=== PATIENT | female | born 1990 | race Caucasian/White ===

== ENCOUNTER 2022-09-28 19:42 | Inpatient (IN) ==
[2022-09-28] MEDS ORDERED: LIDOCAINE 1% LOCAL 20 ML VIAL INFIL PRN (20:59)
[2022-09-28] MEDS ORDERED: OXYTOCIN 30 UNITS/500 ML BAG IV PRN (20:59)
[2022-09-28] MEDS ORDERED: BUTORPHANOL TARTRATE 1 MG/ML VIAL IV PRN (21:17)
--- NOTE | 2022-09-28 21:27 | History & Physical Report ---
Date of Service September 28, 2022 Assessment & Plan (1) Amniotic fluid leaking: (2) Uterine contractions at greater than 20 weeks of gestation: (3) Spontaneous rupture of amniotic membranes: Plan: 32 yo at 40.2 wks with contractions, SROM, early labor VSS Afebrile No medical problems GBS neg FHR categ I Plan to admit, monitor, labs, ambulate, augment with Oxytocin as needed All questions were answered. Admission and Anticipated Discharge Date Admission Date: September 28, 2022 History of Present Illness Primary Care Provider: NO PCP Patient is a 32 yo at 40.2 wks who has been feeling contractions since 1 pm today, they got more painful and regular after 6 pm. She felt a gush of fluid leaking when she was entering to here, L&D doors at 19:45 . It is clear. No VB. +FM Her has been uncomplicated except Class II obesity Denies medical problems. EFW was 7 lb 2 oz at 37 weeks GBS negative Allergies Allergy/AdvReac Type Severity Reaction Status Date / Time amoxicillin Allergy Hives Verified 09/28/22 20:05 Home Medications Medication Instructions Recorded Confirmed Type prenat.vits,katie,qvo-opew-merhf 1 tab PO DAILY 09/28/22 09/28/22 History Patient History Surgical History H/O wisdom tooth extraction Family History Grandmother (Maternal) Diabetes Father Heart disease Grandmother (Maternal) Heart disease Social History Smoking Status: Never smoker Hx Alcohol Use: No Hx Substance Use: No Preferred Language: Slovenian Communication Ability: Effective 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 Beliefs That Will Affect Care: None marital status: Single Current Living Situation: Significant Other Current Living Situation Comment: Geovany, 3 year old girl (Geovany's daughter) Other Information That Helps Us Care for You: No Feels Safe at Home: Yes Safety Concerns: Feels Safe At This Time 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 Denies h/o any STD's, no Genital HSV/ Chlamydia/ GC Review of Systems as per Subjective / HPI Physical Exam Constitutional: WD/WN, vitals as above well developed, well nourished, + acute distress (WITH CONTRACTIONS only) and + obese Gastrointestinal (Abdomen): normal bowel sounds, soft, nontender, no hepatosplenomegaly (gravid, Hermilo 8 lb) Genitourinary: normal external appearance OB Exam Abdomen: + vertex Manual OB Exam: + cervical dilation 2 cm, + cervical effacement 70% and + station -2 OB Exam Monitor Tracing: + external uterine monitor used and + category I Bed side US: vertex, placenta fundal, EFW, although not accurate due to head being engaged, 3570 gr Amnisure positive Results & Data Vital Signs (Past 12 Hours) Vital Signs Temp Pulse Resp BP 09/28/22 20:08 18 09/28/22 20:04 36.9 C 110 H 125/82
[2022-09-28 21:35] LABS: Hematocrit (blood only) 34.3 % (37.0-47.0); Hemoglobin 12.2 g/dl (12.0-16.0); Mean Corpuscular Hemoglobin 31.7 pg (25.0-34.0); Mean Corpuscular Hgb Conc 35.6 g/dL (32.0-36.0); Mean Corpuscular Volume 89.1 fL (80.0-100.0); Mean Platelet Volume 11.3 fL (9.4-12.4); Platelet Count 166 K/uL (130-400); RDW Coefficient of Variation 13.2 % (11.5-14.5); RDW Standard Deviation 42.8 fL (36.4-46.3); Red Blood Count 3.85 M/uL (4.20-5.40); White Blood Count 10.53 K/ul (4.8-10.8)
[2022-09-28 21:46] LABS: Albumin Globulin Ratio 1.1 (0.9-2); Albumin Level 3.4 gm/dl (3.4-5.0); BUN Creatinine Ratio 11.7 (10-20); Bilirubin,Total 0.4 mg/dl (0.2-1.0); Calcium 8.8 mg/dl (8.6-10.3); Creatinine Clr Calc Pharmacy 174.9 ml/min; Est GFR (African American) 141.8 ml/min; Est GFR (Non-African American) 122.3 ml/min; Globulin 3.1 gm/dl (2.5-4.0); Potassium 3.8 mmol/L (3.5-5.1); Total Protein 6.5 gm/dl (6.0-8.3)
[2022-09-28] MEDS: LACTATED RINGER'S 1,000 ML IV PRN (22:44)
[2022-09-28] MEDS ORDERED: SODIUM CHLORIDE 0.9% PF INJ 10 ML VIAL ONE (22:49)
[2022-09-28] MEDS ORDERED: fentaNYL citrate PF 100 MCG/2 ML VIAL ONE (22:49)
[2022-09-28] MEDS ORDERED: LIDOCAINE 2%/EPINEPHRINE 1:200,000 20 ML PF ONE (22:49)
[2022-09-28] MEDS ORDERED: ePHEDrine sulfate 50 MG/ML AMP ONE (22:49)
[2022-09-28] MEDS ORDERED: BUPIVACAINE 0.25% PF 30 ML VIAL ONE (22:49)
[2022-09-28] MEDS ORDERED: fentaNYL 2MCG/ML ROPIVACAINE 1.25MG/ML 100 ML BAG EPI ONE (22:50)
[2022-09-28] MEDS ORDERED: ONDANSETRON INJ 2 MG/ML 2 ML VIAL IV PRN (23:49)
[2022-09-28] MEDS ORDERED: diphenhydrAMINE 50 MG/ML VIAL IV PRN (23:49)
[2022-09-28] MEDS ORDERED: NALOXONE HCL 1 MG in SODIUM CHLORIDE 0.9% 1000ML 1,000 ML IV PRN (23:49)
[2022-09-28] MEDS ORDERED: NALOXONE HCL 0.4 MG/1 ML VIAL/CARP IV PRN (23:49)
[2022-09-28] MEDS ORDERED: ePHEDrine sulfate 50 MG/ML AMP IV PRN (23:49)
[2022-09-28] MEDS ORDERED: NALBUPHINE HCL INJ 10 MG/ML AMP IV PRN (23:49)
--- NOTE | 2022-09-28 23:49 | Anesthesiology Consultation ---
Date of Service September 28, 2022 Assessment & Plan Chart Review Chart Review: Patient NOT seen in Pre Admission Testing and Acceptable Risk for Labor Epidural Consults Requested none ASA ASA2 Proposed Anesthesia Anesthesia Type: Labor Epidural Risk / Benefits Reviewed With: PT / POA / Parent / Guardian, Accepts Plan and Informed Consent Obtained History Height/Weight Height: 5 ft 5 in Weight: 116.573 kg Allergies Allergy/AdvReac Type Severity Reaction Status Date / Time amoxicillin Allergy Hives Verified 09/28/22 20:05 Medications Home Medications Medication Instructions Recorded Confirmed Last Taken prenat.vits,katie,jgm-okcu-sfyzt 1 tab PO DAILY 09/28/22 09/28/22 09/28/22 Active Medications Generic Name Dose Route Start Last Admin Trade Name Freq PRN Reason Stop Dose Admin Lactated Ringer's 1,000 mls @ 150 mls/hr 09/28/22 20:59 09/28/22 23:34 Lr IV 09/30/22 20:58 150 mls/hr .[id number] PRN Infusion L&D Protocol Protocol Exercise / Class Metabolic Activity II 4-5 Yardwork/Stairs/Walk up hill Past Family History Family History Grandmother (Maternal) Diabetes Father Heart disease Grandmother (Maternal) Heart disease Past Surgical History Surgical History H/O wisdom tooth extraction Past Anesthesia History No Hx of Anesthesia Complications and No Family Hx of Anesthesia Complications History of PONV No Hx of PONV and No Hx of Motion Sickness Social History Smoking Status: Never smoker Hx Alcohol Use: No Hx Substance Use: No substance use type: does not use Physical Exam Vital Signs Last Vital Signs Temp 36.5 C 09/28/22 22:41 Pulse 97 H 09/28/22 23:48 Resp 20 09/28/22 22:41 BP 118/62 09/28/22 23:48 Pulse Ox 99 09/28/22 23:46 ENMT Mouth: no dentition abnormality Thyromental Distance: > or= 3.5 Finger Breadths Mallampati Class: II Neck normal visual inspection Respiratory normal respiratory effort Auscultation: lungs clear to auscultation bilaterally Cardiovascular Rate/Rhythm: regular rate and regular rhythm Psychiatric Orientation: alert Testing Laboratory Results 09/28/22 21:17 09/28/22 21:17 Blood Type O Positive 09/28/22 21:17 Antibody Screen NEGATIVE 09/28/22 21:17
[2022-09-29] MEDS ORDERED: BUPIVACAINE 0.25% PF 30 ML VIAL ONE (00:10)
--- NOTE | 2022-09-29 00:18 | Obstetrical Progress Note ---
Date of Service September 29, 2022 Assessment & Plan Admission and Anticipated Discharge Date Admission Date: September 28, 2022 Subjective Patient has received epidural about 1/2 hour ago and still painful VSS Afebrile FHR categ I Cxs q 2 min VE; 3/ 70%/ -2, tight bulging bag Will consult anesthesia for further pain management Continue to monitor closely. Results & Data Vital Signs (Past 12 Hours) Vital Signs Temp Pulse Resp BP Pulse Ox 09/28/22 20:08 18 09/29/22 00:16 89 100 09/29/22 00:11 83 133/80 100 09/29/22 00:06 100 09/29/22 00:06 84 09/29/22 00:06 81 119/69 09/29/22 00:02 83 108/59 L 09/29/22 00:01 82 100 09/28/22 23:56 90 20 108/61 100 09/28/22 23:51 20 09/28/22 23:51 99 H 20 110/59 L 100 09/28/22 23:48 97 H 20 118/62 09/28/22 23:46 102 H 99 09/28/22 23:45 96 H 119/66 09/28/22 23:41 90 98 09/28/22 23:42 96 H 120/67 09/28/22 23:39 81 132/79 09/28/22 23:36 81 96 09/28/22 23:31 89 100 09/28/22 23:26 83 98 09/28/22 23:21 87 97 09/28/22 23:16 85 99 09/28/22 23:11 81 99 09/28/22 23:06 86 99 09/28/22 23:01 83 99 09/28/22 22:56 86 98 09/28/22 22:41 36.5 C 93 H 20 144/79 H 09/28/22 21:33 18 09/28/22 21:33 37.0 C 18 09/28/22 20:04 36.9 C 110 H 125/82
[2022-09-29] MEDS: LACTATED RINGER'S 1,000 ML IV PRN ×2 (00:58→07:03)
[2022-09-29] MEDS ORDERED: OXYTOCIN 30 UNITS/500 ML BAG IV PRN ×2 (01:16→13:19)
[2022-09-29] MEDS: fentaNYL 2MCG/ML ROPIVACAINE 1.25MG/ML 100 ML BAG EPI PRN ×2 (04:12→08:46)
--- NOTE | 2022-09-29 06:53 | Obstetrical Progress Note ---
Date of Service September 29, 2022 Assessment & Plan Admission and Anticipated Discharge Date Admission Date: September 28, 2022 Subjective Patient has been comfortable after epidural bolus VSS Afebrile FHR categ I [place]: ctxs q 2-3 min VE; 6/ 90%/-2, large bulging bag, AROM'ed, abundant clear fluid Continue to monitor closely Results & Data Vital Signs (Past 12 Hours) Vital Signs Temp Pulse Resp BP Pulse Ox 09/28/22 20:08 18 09/29/22 06:46 76 99 09/29/22 06:43 78 130/62 09/29/22 06:41 79 96 09/29/22 06:36 81 97 09/29/22 06:31 88 98 09/29/22 06:28 82 142/80 H 09/29/22 06:26 98 H 98 09/29/22 06:21 91 H 97 09/29/22 06:16 84 98 09/29/22 06:12 88 121/71 09/29/22 06:11 82 97 09/29/22 06:06 91 H 97 09/29/22 06:01 80 97 09/29/22 05:57 87 128/76 09/29/22 05:56 75 97 09/29/22 05:51 79 97 09/29/22 05:46 82 98 09/29/22 05:41 78 98 09/29/22 05:42 79 127/72 09/29/22 05:36 79 99 09/29/22 05:31 79 98 09/29/22 05:29 73 121/66 09/29/22 05:26 80 98 09/29/22 05:21 81 96 09/29/22 05:16 82 97 09/29/22 05:13 88 130/73 09/29/22 05:11 78 96 09/29/22 05:06 80 96 09/29/22 05:01 83 96 09/29/22 04:58 76 125/76 09/29/22 04:56 83 97 09/29/22 04:51 75 97 09/29/22 04:46 78 96 09/29/22 04:43 75 127/67 09/29/22 04:41 75 97 09/29/22 04:36 75 97 09/29/22 04:31 83 94 09/29/22 04:32 83 94 09/29/22 04:27 74 123/63 09/29/22 04:26 76 95 09/29/22 04:21 80 95 09/29/22 04:16 78 96 09/29/22 04:14 16 09/29/22 04:14 36.7 C 16 09/29/22 04:13 76 120/63 09/29/22 04:11 77 96 09/29/22 04:06 90 98 09/29/22 04:01 79 96 09/29/22 03:58 83 127/68 09/29/22 03:56 91 H 97 09/29/22 03:53 77 94 09/29/22 03:51 74 96 09/29/22 03:46 73 96 09/29/22 03:43 68 112/55 L 09/29/22 03:41 80 96 09/29/22 03:36 78 96 09/29/22 03:31 75 96 09/29/22 03:27 70 114/56 L 09/29/22 03:26 73 96 09/29/22 03:21 79 96 09/29/22 03:16 74 96 09/29/22 03:12 76 115/66 09/29/22 03:11 86 97 09/29/22 03:06 75 97 09/29/22 03:01 77 96 09/29/22 02:58 81 110/65 09/29/22 02:56 75 96 09/29/22 02:51 94 H 97 09/29/22 02:46 101 H 98 09/29/22 02:43 83 133/74 09/29/22 02:41 79 98 09/29/22 02:36 93 H 98 09/29/22 02:34 36.7 C 87 18 94 09/29/22 02:31 90 96 09/29/22 02:28 87 112/55 L 09/29/22 02:26 89 97 09/29/22 02:21 89 95 09/29/22 02:16 82 96 09/29/22 02:14 83 98/54 L 09/29/22 02:11 82 96 09/29/22 02:06 91 H 96 09/29/22 02:01 85 98 09/29/22 01:57 77 18 109/56 L 09/29/22 01:56 84 95 09/29/22 01:51 84 96 09/29/22 01:46 81 97 09/29/22 01:43 79 104/59 L 09/29/22 01:41 89 96 09/29/22 01:36 82 96 09/29/22 01:31 86 97 09/29/22 01:28 86 110/69 09/29/22 01:26 97 H 97 09/29/22 01:21 79 96 09/29/22 01:16 88 96 09/29/22 01:14 82 109/55 L 09/29/22 01:11 97 H 97 09/29/22 01:06 99 H 98 09/29/22 01:01 83 98 09/29/22 00:57 83 115/61 09/29/22 00:56 105 H 99 09/29/22 00:53 99 H 113/56 L 09/29/22 00:51 98 H 99 09/29/22 00:46 96 09/29/22 00:46 99 H 09/29/22 00:46 90 108/57 L 09/29/22 00:41 81 103/59 L 98 09/29/22 00:36 99 09/29/22 00:36 83 09/29/22 00:36 82 111/55 L 09/29/22 00:31 89 100 09/29/22 00:32 83 112/59 L 09/29/22 00:29 36.6 C 09/29/22 00:26 83 128/73 99 09/29/22 00:22 90 117/60 09/29/22 00:21 88 100 09/29/22 00:18 88 140/80 09/29/22 00:16 89 100 09/29/22 00:11 83 133/80 100 09/29/22 00:06 100 09/29/22 00:06 84 09/29/22 00:06 81 119/69 09/29/22 00:02 83 108/59 L 09/29/22 00:01 82 100 09/28/22 23:56 90 20 108/61 100 09/28/22 23:51 20 09/28/22 23:51 99 H 20 110/59 L 100 09/28/22 23:48 97 H 20 118/62 09/28/22 23:46 102 H 99 09/28/22 23:45 96 H 119/66 09/28/22 23:41 90 98 09/28/22 23:42 96 H 120/67 09/28/22 23:39 81 132/79 09/28/22 23:36 81 96 09/28/22 23:31 89 100 09/28/22 23:26 83 98 09/28/22 23:21 87 97 09/28/22 23:16 85 99 09/28/22 23:11 81 99 09/28/22 23:06 86 99 09/28/22 23:01 83 99 09/28/22 22:56 86 98 09/28/22 22:41 36.5 C 93 H 20 144/79 H 09/28/22 21:33 18 09/28/22 21:33 37.0 C 18 09/28/22 20:04 36.9 C 110 H 125/82
--- NOTE | 2022-09-29 07:54 | Obstetrical Progress Note ---
Date of Service September 29, 2022 Assessment & Plan Admission and Anticipated Discharge Date Admission Date: September 28, 2022 Subjective Patient felt pressure and uncomfortable VE; 8-9/ 90%/ 0, head much lower FHR categ I, mild early decels with contractions Continue to monitor closely Results & Data Vital Signs (Past 12 Hours) Vital Signs Temp Pulse Resp BP Pulse Ox 09/29/22 07:10 36.8 C 18 09/29/22 07:10 18 09/28/22 20:08 18 09/29/22 07:51 81 99 09/29/22 07:46 92 H 99 09/29/22 07:44 107 H 151/69 H 09/29/22 07:41 89 99 09/29/22 07:36 94 H 99 09/29/22 07:31 84 99 09/29/22 07:27 80 135/77 09/29/22 07:26 91 H 98 09/29/22 07:21 93 H 99 09/29/22 07:16 90 100 09/29/22 07:14 86 156/82 H 09/29/22 07:11 80 99 09/29/22 07:06 82 99 09/29/22 07:01 80 99 09/29/22 06:59 83 142/92 H 09/29/22 06:56 75 98 09/29/22 06:51 82 99 09/29/22 06:46 76 99 09/29/22 06:43 78 130/62 09/29/22 06:41 79 96 09/29/22 06:36 81 97 09/29/22 06:31 88 98 09/29/22 06:28 82 142/80 H 09/29/22 06:26 98 H 98 09/29/22 06:21 91 H 97 09/29/22 06:16 84 98 09/29/22 06:12 88 121/71 09/29/22 06:11 82 97 09/29/22 06:06 91 H 97 09/29/22 06:01 80 97 09/29/22 05:57 87 128/76 09/29/22 05:56 75 97 09/29/22 05:51 79 97 09/29/22 05:46 82 98 09/29/22 05:41 78 98 09/29/22 05:42 79 127/72 09/29/22 05:36 79 99 09/29/22 05:31 79 98 09/29/22 05:29 73 121/66 09/29/22 05:26 80 98 09/29/22 05:21 81 96 09/29/22 05:16 82 97 09/29/22 05:13 88 130/73 09/29/22 05:11 78 96 09/29/22 05:06 80 96 09/29/22 05:01 83 96 09/29/22 04:58 76 125/76 09/29/22 04:56 83 97 09/29/22 04:51 75 97 09/29/22 04:46 78 96 09/29/22 04:43 75 127/67 09/29/22 04:41 75 97 09/29/22 04:36 75 97 09/29/22 04:31 83 94 09/29/22 04:32 83 94 09/29/22 04:27 74 123/63 09/29/22 04:26 76 95 09/29/22 04:21 80 95 09/29/22 04:16 78 96 09/29/22 04:14 16 09/29/22 04:14 36.7 C 16 09/29/22 04:13 76 120/63 09/29/22 04:11 77 96 09/29/22 04:06 90 98 09/29/22 04:01 79 96 09/29/22 03:58 83 127/68 09/29/22 03:56 91 H 97 09/29/22 03:53 77 94 09/29/22 03:51 74 96 09/29/22 03:46 73 96 09/29/22 03:43 68 112/55 L 09/29/22 03:41 80 96 09/29/22 03:36 78 96 09/29/22 03:31 75 96 09/29/22 03:27 70 114/56 L 09/29/22 03:26 73 96 09/29/22 03:21 79 96 09/29/22 03:16 74 96 09/29/22 03:12 76 115/66 09/29/22 03:11 86 97 09/29/22 03:06 75 97 09/29/22 03:01 77 96 09/29/22 02:58 81 110/65 09/29/22 02:56 75 96 0413/23 02:51 94 H 97 09/29/22 02:46 101 H 98 09/29/22 02:43 83 133/74 09/29/22 02:41 79 98 09/29/22 02:36 93 H 98 09/29/22 02:34 36.7 C 87 18 94 09/29/22 02:31 90 96 09/29/22 02:28 87 112/55 L 09/29/22 02:26 89 97 09/29/22 02:21 89 95 09/29/22 02:16 82 96 09/29/22 02:14 83 98/54 L 09/29/22 02:11 82 96 09/29/22 02:06 91 H 96 09/29/22 02:01 85 98 09/29/22 01:57 77 18 109/56 L 09/29/22 01:56 84 95 09/29/22 01:51 84 96 09/29/22 01:46 81 97 09/29/22 01:43 79 104/59 L 09/29/22 01:41 89 96 09/29/22 01:36 82 96 09/29/22 01:31 86 97 09/29/22 01:28 86 110/69 09/29/22 01:26 97 H 97 09/29/22 01:21 79 96 09/29/22 01:16 88 96 09/29/22 01:14 82 109/55 L 09/29/22 01:11 97 H 97 09/29/22 01:06 99 H 98 09/29/22 01:01 83 98 09/29/22 00:57 83 115/61 09/29/22 00:56 105 H 99 09/29/22 00:53 99 H 113/56 L 09/29/22 00:51 98 H 99 09/29/22 00:46 96 09/29/22 00:46 99 H 09/29/22 00:46 90 108/57 L 09/29/22 00:41 81 103/59 L 98 09/29/22 00:36 99 09/29/22 00:36 83 09/29/22 00:36 82 111/55 L 09/29/22 00:31 89 100 09/29/22 00:32 83 112/59 L 09/29/22 00:29 36.6 C 09/29/22 00:26 83 128/73 99 09/29/22 00:22 90 117/60 09/29/22 00:21 88 100 09/29/22 00:18 88 140/80 09/29/22 00:16 89 100 09/29/22 00:11 83 133/80 100 09/29/22 00:06 100 09/29/22 00:06 84 09/29/22 00:06 81 119/69 09/29/22 00:02 83 108/59 L 09/29/22 00:01 82 100 09/28/22 23:56 90 20 108/61 100 09/28/22 23:51 20 09/28/22 23:51 99 H 20 110/59 L 100 09/28/22 23:48 97 H 20 118/62 09/28/22 23:46 102 H 99 09/28/22 23:45 96 H 119/66 09/28/22 23:41 90 98 09/28/22 23:42 96 H 120/67 09/28/22 23:39 81 132/79 09/28/22 23:36 81 96 09/28/22 23:31 89 100 09/28/22 23:26 83 98 09/28/22 23:21 87 97 09/28/22 23:16 85 99 09/28/22 23:11 81 99 09/28/22 23:06 86 99 09/28/22 23:01 83 99 09/28/22 22:56 86 98 09/28/22 22:41 36.5 C 93 H 20 144/79 H 09/28/22 21:33 18 09/28/22 21:33 37.0 C 18 09/28/22 20:04 36.9 C 110 H 125/82
[2022-09-29] MEDS ORDERED: Nursing to Pharmacy Communication SCH (09:00)
--- NOTE | 2022-09-29 09:10 | Anesthesia Procedure Note ---
Date of Service September 29, 2022 Anesthesia Epidural Re-Dose Vital Signs Temp Pulse Resp BP Pulse Ox 36.8 C 93 H 20 164/78 H 99 09/29/22 07:10 09/29/22 09:11 09/29/22 09:01 09/29/22 08:59 09/29/22 09:11 Notes Pain Intensity: 9 Dilatation (cm): 10.0 Effacement (%): 100 Heart Rate: 130 Called by nursing to evaluate epidural as the patient is having increased pain. The epidural was re-dosed with the following medications (all medications via epidural route) after negative aspiration of the epidural catheter for CSF/HEME 1.2% lidocaine and 0.2% ropivacaine 6m then 2mll After Epidural Re-Dose Mental Status: alert / awake / arousable and participated in evaluation Pain: improving with treatment Airway Patency, RR, SpO2: stable & adequate BP & HR: stable & adequate
--- NOTE | 2022-09-29 10:41 | Obstetrical Progress Note ---
Date of Service September 29, 2022 Assessment & Plan Admission and Anticipated Discharge Date Admission Date: September 28, 2022 Subjective Patient was found to be fully dilated earlier and wanted to push. She was very painful with pushes which were not effective. Epidural bolus was given by anesthesia and now comfortable Plan to labor down and continue to monitor closely. Results & Data Vital Signs (Past 12 Hours) Vital Signs Temp Pulse Resp BP Pulse Ox 09/29/22 07:10 36.8 C 18 09/29/22 07:10 18 09/29/22 10:36 90 100 09/29/22 10:34 92 H 83 L 09/29/22 10:31 83 99 09/29/22 10:27 93 H 116/66 09/29/22 10:26 98 H 98 09/29/22 10:24 95 H 90 09/29/22 10:21 93 H 99 09/29/22 10:16 103 H 95 09/29/22 10:14 88 110/62 09/29/22 10:11 89 83 L 09/29/22 10:06 91 H 99 09/29/22 10:01 96 H 99 09/29/22 09:59 94 H 123/59 L 09/29/22 09:56 88 99 09/29/22 09:53 96 H 88 L 09/29/22 09:51 89 100 09/29/22 09:46 89 99 09/29/22 09:44 88 133/62 09/29/22 09:41 86 100 09/29/22 09:36 85 99 09/29/22 09:31 85 99 09/29/22 09:30 20 09/29/22 09:30 36.8 C 20 09/29/22 09:28 83 122/59 L 09/29/22 09:26 90 99 09/29/22 09:21 99 H 96 09/29/22 09:16 89 99 09/29/22 09:13 88 144/63 H 09/29/22 09:11 93 H 99 09/29/22 09:06 88 98 09/29/22 09:01 91 H 20 97 09/29/22 08:59 91 H 164/78 H 09/29/22 08:56 92 H 98 09/29/22 08:51 92 H 98 09/29/22 08:46 97 H 98 09/29/22 08:42 81 144/63 H 09/29/22 08:41 128 H 96 09/29/22 08:38 82 143/64 H 09/29/22 08:36 94 H 98 09/29/22 08:31 85 20 99 09/29/22 08:30 105 H 85 L 09/29/22 08:26 85 100 09/29/22 08:21 100 09/29/22 08:21 119 H 09/29/22 08:21 100 H 89 L 09/29/22 08:16 93 H 99 09/29/22 08:13 75 147/76 H 09/29/22 08:11 80 99 09/29/22 08:06 77 100 09/29/22 08:01 96 H 99 09/29/22 08:00 86 146/90 H 09/29/22 07:56 93 H 100 09/29/22 07:51 81 99 09/29/22 07:46 92 H 99 09/29/22 07:44 107 H 151/69 H 09/29/22 07:41 89 99 09/29/22 07:36 94 H 99 09/29/22 07:31 84 99 09/29/22 07:27 80 135/77 09/29/22 07:26 91 H 98 09/29/22 07:21 93 H 99 09/29/22 07:16 90 100 09/29/22 07:14 86 156/82 H 09/29/22 07:11 80 99 09/29/22 07:06 82 99 09/29/22 07:01 80 99 09/29/22 06:59 83 142/92 H 09/29/22 06:56 75 98 09/29/22 06:51 82 99 09/29/22 06:46 76 99 09/29/22 06:43 78 130/62 09/29/22 06:41 79 96 09/29/22 06:36 81 97 09/29/22 06:31 88 98 09/29/22 06:28 82 142/80 H 09/29/22 06:26 98 H 98 09/29/22 06:21 91 H 97 09/29/22 06:16 84 98 09/29/22 06:12 88 121/71 09/29/22 06:11 82 97 09/29/22 06:06 91 H 97 09/29/22 06:01 80 97 09/29/22 05:57 87 128/76 09/29/22 05:56 75 97 09/29/22 05:51 79 97 09/29/22 05:46 82 98 09/29/22 05:41 78 98 09/29/22 05:42 79 127/72 09/29/22 05:36 79 99 09/29/22 05:31 79 98 09/29/22 05:29 73 121/66 09/29/22 05:26 80 98 09/29/22 05:21 81 96 09/29/22 05:16 82 97 09/29/22 05:13 88 130/73 09/29/22 05:11 78 96 09/29/22 05:06 80 96 09/29/22 05:01 83 96 09/29/22 04:58 76 125/76 09/29/22 04:56 83 97 09/29/22 04:51 75 97 09/29/22 04:46 78 96 09/29/22 04:43 75 127/67 09/29/22 04:41 75 97 09/29/22 04:36 75 97 09/29/22 04:31 83 94 09/29/22 04:32 83 94 09/29/22 04:27 74 123/63 09/29/22 04:26 76 95 09/29/22 04:21 80 95 09/29/22 04:16 78 96 09/29/22 04:14 16 09/29/22 04:14 36.7 C 16 09/29/22 04:13 76 120/63 09/29/22 04:11 77 96 09/29/22 04:06 90 98 09/29/22 04:01 79 96 09/29/22 03:58 83 127/68 09/29/22 03:56 91 H 97 09/29/22 03:53 77 94 09/29/22 03:51 74 96 09/29/22 03:46 73 96 09/29/22 03:43 68 112/55 L 09/29/22 03:41 80 96 09/29/22 03:36 78 96 09/29/22 03:31 75 96 09/29/22 03:27 70 114/56 L 09/29/22 03:26 73 96 09/29/22 03:21 79 96 09/29/22 03:16 74 96 09/29/22 03:12 76 115/66 09/29/22 03:11 86 97 09/29/22 03:06 75 97 09/29/22 03:01 77 96 09/29/22 02:58 81 110/65 09/29/22 02:56 75 96 09/29/22 02:51 94 H 97 09/29/22 02:46 101 H 98 09/29/22 02:43 83 133/74 09/29/22 02:41 79 98 09/29/22 02:36 93 H 98 09/29/22 02:34 36.7 C 87 18 94 09/29/22 02:31 90 96 09/29/22 02:28 87 112/55 L 09/29/22 02:26 89 97 09/29/22 02:21 89 95 09/29/22 02:16 82 96 09/29/22 02:14 83 98/54 L 09/29/22 02:11 82 96 09/29/22 02:06 91 H 96 09/29/22 02:01 85 98 09/29/22 01:57 77 18 109/56 L 09/29/22 01:56 84 95 09/29/22 01:51 84 96 09/29/22 01:46 81 97 09/29/22 01:43 79 104/59 L 09/29/22 01:41 89 96 09/29/22 01:36 82 96 09/29/22 01:31 86 97 09/29/22 01:28 86 110/69 09/29/22 01:26 97 H 97 09/29/22 01:21 79 96 09/29/22 01:16 88 96 09/29/22 01:14 82 109/55 L 09/29/22 01:11 97 H 97 09/29/22 01:06 99 H 98 09/29/22 01:01 83 98 09/29/22 00:57 83 115/61 09/29/22 00:56 105 H 99 09/29/22 00:53 99 H 113/56 L 09/29/22 00:51 98 H 99 09/29/22 00:46 96 09/29/22 00:46 99 H 09/29/22 00:46 90 108/57 L 09/29/22 00:41 81 103/59 L 98 09/29/22 00:36 99 09/29/22 00:36 83 09/29/22 00:36 82 111/55 L 09/29/22 00:31 89 100 09/29/22 00:32 83 112/59 L 09/29/22 00:29 36.6 C 09/29/22 00:26 83 128/73 99 09/29/22 00:22 90 117/60 09/29/22 00:21 88 100 09/29/22 00:18 88 140/80 09/29/22 00:16 89 100 09/29/22 00:11 83 133/80 100 09/29/22 00:06 100 09/29/22 00:06 84 09/29/22 00:06 81 119/69 09/29/22 00:02 83 108/59 L 09/29/22 00:01 82 100 09/28/22 23:56 90 20 108/61 100 09/28/22 23:51 20 09/28/22 23:51 99 H 20 110/59 L 100 09/28/22 23:48 97 H 20 118/62 09/28/22 23:46 102 H 99 09/28/22 23:45 96 H 119/66 09/28/22 23:41 90 98 09/28/22 23:42 96 H 120/67 09/28/22 23:39 81 132/79 09/28/22 23:36 81 96 09/28/22 23:31 89 100 09/28/22 23:26 83 98 09/28/22 23:21 87 97 09/28/22 23:16 85 99 09/28/22 23:11 81 99 09/28/22 23:06 86 99 09/28/22 23:01 83 99 09/28/22 22:56 86 98 09/28/22 22:41 36.5 C 93 H 20 144/79 H
[2022-09-29] MEDS ORDERED: HYDROCORTISONE ACETATE 25 MG SUPP PR PRN (13:19)
[2022-09-29] MEDS ORDERED: MEASLES, MUMPS & RUBELLA VIRUS VIAL SQ ONE (13:19)
[2022-09-29] MEDS ORDERED: DIPHTHERIA/TETANUS/PERTUSSIS 0.5mL SYR/VIAL (Age 7+yrs) IM ONE (13:19)
[2022-09-29] MEDS ORDERED: BENZOCAINE 20% AER SPR 82.5 GM CAN EXT PRN (13:19)
[2022-09-29] MEDS ORDERED: oxyCODONE/ACETAMINOPHEN 5mg/325mg TAB PO PRN (13:19)
[2022-09-29] MEDS ORDERED: ACETAMINOPHEN 325 MG TAB PO PRN (13:19)
[2022-09-29] MEDS ORDERED: bisacodyL 10 MG SUPP PR PRN (13:19)
--- NOTE | 2022-09-29 13:23 | Delivery Summary ---
Vaginal Delivery Summary Date of Service September 29, 2022 Vaginal Delivery Summary Patient was found to be fluid dilated and desired to push she pushed on and off with rest in between for total of 1 hour and 45 minutes and delivered the head without difficulty. The shoulders were delivered with minimal traction and baby was handed off to the mother where mouth and nose were suctioned. The cord was clamped times and cut. Patient was taken by nursery team. The vagina and perineum were checked for lacerations. There was a second-degree laceration in the vagina and the posterior wall. It was repaired with 2-0 Vicryl in a running locked fashion bringing the vaginal mucosa together b ulbocavernosus muscle together and skin in a subcuticular fashion. Excellent hemostasis achieved. Then there was a small first-degree laceration on the superior hymenal ring at 1 o'clock position. It was repaired with 3-0 Vicryl on SH needle with [id number] stitches x2. It was hemostatic. Then the placenta was found to be the vagina, delivered spontaneously as intact and complete. Uterus was explored and found to be empty, the lower segment was cleared of all clots and debris's, EBL was 200 mL, fundus was firm. Mom and baby tolerated procedure well. The sponge needle instrument count was correct x2. The baby was a viable female Apgars were 7/9 and weight is pending. No complications happened and I was present during whole procedure.
--- NOTE | 2022-09-29 15:23 | Anesthesia Procedure Note ---
Date of Service September 29, 2022 Anesthesia Post Epidural Note Vital Signs Vital Signs: Temp Pulse Resp BP Pulse Ox 36.9 C 116 H 20 121/61 97 09/29/22 12:45 09/29/22 15:13 09/29/22 14:45 09/29/22 15:13 09/29/22 11:51 Pain Intensity Bilateral Lower Abdomen: Pain Intensity: 9 Notes Mental Status: alert / awake / arousable and participated in evaluation Nausea / Vomiting: adequately controlled Pain: adequately controlled Airway Patency, RR, SpO2: stable & adequate BP & HR: stable & adequate Hydration State: stable & adequate Neuraxial Anesthesia: was administered and sensory block is resolving Anesthetic Complications: no major complications apparent Epidural: Removed without complications and With tip intact
[2022-09-29] MEDS: IBUPROFEN 600 MG TAB PO PRN ×2 (16:06→20:26)
[2022-09-29] MEDS: DOCUSATE SODIUM 100 MG CAP PO SCH (20:23)
[2022-09-30] MEDS: IBUPROFEN 600 MG TAB PO PRN ×4 (04:43→21:12)
[2022-09-30 06:43] LABS: Hematocrit (blood only) 28.3 % (37.0-47.0); Hemoglobin 9.7 g/dl (12.0-16.0); Mean Corpuscular Hemoglobin 31.2 pg (25.0-34.0); Mean Corpuscular Hgb Conc 34.3 g/dL (32.0-36.0); Mean Platelet Volume 11.9 fL (9.4-12.4); Platelet Count 161 K/uL (130-400); RDW Coefficient of Variation 13.5 % (11.5-14.5); RDW Standard Deviation 44.4 fL (36.4-46.3); Red Blood Count 3.11 M/uL (4.20-5.40); White Blood Count 14.02 K/ul (4.8-10.8)
[2022-09-30] MEDS: FERROUS SULFATE 325 MG TAB PO SCH (08:31)
[2022-09-30] MEDS: PRENATAL VITAMIN 1 TAB PO SCH (08:31)
[2022-09-30] MEDS: DOCUSATE SODIUM 100 MG CAP PO SCH ×2 (08:31→21:12)
--- NOTE | 2022-09-30 14:08 | Obstetrical Progress Note ---
Date of Service September 30, 2022 Subjective Ambulation: ambulating normally Voiding: no voiding problems Passing Gas:: Yes Diet Tolerance:: regular diet Lochia:: Small Feeding Type:: breast feeding Current Pain Level(1-10): 0 doing well Physical Exam Constitutional WD/WN, vitals as above Gastrointestinal (Abdomen) Inspection/Auscultation: abdomen normal to inspection Musculoskeletal Extremities: extremities normal to inspection Skin no rashes, warm and dry Neurologic patellar DTR's 2+ bilat, sensation intact Psychiatric A+Ox3, euthymic affect Genitourinary no vaginal lesions, no adnexal mass Results & Data Vital Signs (Past 12 Hours) Vital Signs Temp Pulse Resp BP Pulse Ox O2 Del Method 09/30/22 11:15 36.6 C 82 16 133/79 98 Room Air 09/30/22 07:20 36.6 C 86 18 129/76 97 Room Air 09/30/22 04:30 36.5 C 82 18 125/75 98 Room Air Laboratory Results 09/28/22 09/28/22 09/28/22 21:03 21:17 21:17 WBC 10.53 RBC 3.85 L Hgb 12.2 Hct 34.3 L MCV 89.1 MCH 31.7 MCHC 35.6 RDW Std Deviation 42.8 RDW Coeff of Venkata 13.2 Plt Count 166 MPV 11.3 Sodium Potassium Chloride Carbon Dioxide Anion Gap BUN Creatinine Est Cr Clr Drug Dosing Est GFR ( Amer) Est GFR (Non-Af Amer) BUN/Creatinine Ratio Glucose Calcium Total Bilirubin AST ALT Alkaline Phosphatase Total Protein Albumin Globulin Albumin/Globulin Ratio Amniotic Protein POS SARS-CoV-2, RNA, NAAT Blood Type O Positive Antibody Screen NEGATIVE 09/28/22 09/28/22 09/30/22 21:17 Unknown 05:58 WBC 14.02 H RBC 3.11 L Hgb 9.7 L Hct 28.3 L MCV 91.0 MCH 31.2 MCHC 34.3 RDW Std Deviation 44.4 RDW Coeff of Venkata 13.5 Plt Count 161 MPV 11.9 Sodium 135 L Potassium 3.8 Chloride 105 Carbon Dioxide 20 L Anion Gap 10 BUN 7 Creatinine 0.60 Est Cr Clr Drug Dosing 174.9 Est GFR ( Amer) 141.8 Est GFR (Non-Af Amer) 122.3 BUN/Creatinine Ratio 11.7 Glucose 104 H Calcium 8.8 Total Bilirubin 0.4 AST 14 ALT 10 Alkaline Phosphatase 150 H Total Protein 6.5 Albumin 3.4 Globulin 3.1 Albumin/Globulin Ratio 1.1 Amniotic Protein SARS-CoV-2, RNA, NAAT NEGATIVE Blood Type Antibody Screen
[2022-09-30] MEDS ORDERED: bisacodyL 5 MG TABEC PO SCH (20:00)
[2022-10-01] MEDS: IBUPROFEN 600 MG TAB PO PRN ×3 (01:36→16:47)
[2022-10-01 08:10] LABS: Hematocrit (blood only) 26.9 % (37.0-47.0); Hemoglobin 9.1 g/dl (12.0-16.0)
[2022-10-01] MEDS: DOCUSATE SODIUM 100 MG CAP PO SCH (08:16)
[2022-10-01] MEDS: PRENATAL VITAMIN 1 TAB PO SCH (08:16)
[2022-10-01] MEDS: FERROUS SULFATE 325 MG TAB PO SCH (08:16)
--- NOTE | 2022-10-01 10:51 | Obstetrical Progress Note ---
Date of Service October 01, 2022 Subjective Ambulation: ambulating normally Voiding: no voiding problems Passing Gas:: Yes Diet Tolerance:: regular diet Lochia:: Small Feeding Type:: breast feeding Current Pain Level(1-10): 0 doing well Physical Exam Constitutional WD/WN, vitals as above Gastrointestinal (Abdomen) Inspection/Auscultation: abdomen normal to inspection (fundus firm below U) Musculoskeletal Extremities: extremities normal to inspection Skin no rashes, warm and dry Neurologic patellar DTR's 2+ bilat, sensation intact Psychiatric A+Ox3, euthymic affect Results & Data Vital Signs (Past 12 Hours) Vital Signs Temp Pulse Resp BP Pulse Ox O2 Del Method 10/01/22 08:10 37.2 C 76 18 106/70 Room Air 10/01/22 00:35 36.5 C 79 18 118/77 98 Room Air Laboratory Results Laboratory Results - last 72 hr 09/28/22 09/28/22 09/28/22 21:03 21:17 21:17 WBC 10.53 RBC 3.85 L Hgb 12.2 Hct 34.3 L MCV 89.1 MCH 31.7 MCHC 35.6 RDW Std Deviation 42.8 RDW Coeff of Venkata 13.2 Plt Count 166 MPV 11.3 Sodium Potassium Chloride Carbon Dioxide Anion Gap BUN Creatinine Est Cr Clr Drug Dosing Est GFR ( Amer) Est GFR (Non-Af Amer) BUN/Creatinine Ratio Glucose Calcium Total Bilirubin AST ALT Alkaline Phosphatase Total Protein Albumin Globulin Albumin/Globulin Ratio Amniotic Protein POS SARS-CoV-2, RNA, NAAT Blood Type O Positive Antibody Screen NEGATIVE 09/28/22 09/28/22 09/30/22 21:17 Unknown 05:58 WBC 14.02 H RBC 3.11 L Hgb 9.7 L Hct 28.3 L MCV 91.0 MCH 31.2 MCHC 34.3 RDW Std Deviation 44.4 RDW Coeff of Venkata 13.5 Plt Count 161 MPV 11.9 Sodium 135 L Potassium 3.8 Chloride 105 Carbon Dioxide 20 L Anion Gap 10 BUN 7 Creatinine 0.60 Est Cr Clr Drug Dosing 174.9 Est GFR ( Amer) 141.8 Est GFR (Non-Af Amer) 122.3 BUN/Creatinine Ratio 11.7 Glucose 104 H Calcium 8.8 Total Bilirubin 0.4 AST 14 ALT 10 Alkaline Phosphatase 150 H Total Protein 6.5 Albumin 3.4 Globulin 3.1 Albumin/Globulin Ratio 1.1 Amniotic Protein SARS-CoV-2, RNA, NAAT NEGATIVE Blood Type Antibody Screen 10/01/22 07:46 WBC RBC Hgb 9.1 L Hct 26.9 L MCV MCH MCHC RDW Std Deviation RDW Coeff of Venkata Plt Count MPV Sodium Potassium Chloride Carbon Dioxide Anion Gap BUN Creatinine Est Cr Clr Drug Dosing Est GFR ( Amer) Est GFR (Non-Af Amer) BUN/Creatinine Ratio Glucose Calcium Total Bilirubin AST ALT Alkaline Phosphatase Total Protein Albumin Globulin Albumin/Globulin Ratio Amniotic Protein SARS-CoV-2, RNA, NAAT Blood Type Antibody Screen
== END 2022-10-01 18:30 | disposition home or self-care (01) | DRG 807 ==
LOC: OPB 19:42 → 4S1 19:47 → 4E2 09-29 15:59
DX: E66.9 Obesity, unspecified; Z37.0 Single live birth; O42.02 Full-term premature rupture of membranes, onset of labor within 24 hours of rupture; Z83.3 Family history of diabetes mellitus; O70.1 Second degree perineal laceration during delivery; O99.214 Obesity complicating childbirth; Z88.1 Allergy status to other antibiotic agents; Z3A.40 40 weeks gestation of pregnancy